=== PATIENT | female | born 1995 | race Caucasian/White ===

== ENCOUNTER 2018-01-30 02:10 | Emergency (ER) | payer OTHER ==
[2018-01-30] MEDS: IBUPROFEN 600 MG TAB PO (02:38)
== END 2018-01-30 06:25 | disposition home or self-care (01) ==
LOC: FTE 06:25
DX: S93.401A Sprain of unspecified ligament of right ankle, initial encounter (principal); X58.XXXA Exposure to other specified factors, initial encounter; Y92.9 Unspecified place or not applicable
CPT/HCPCS: 73610; 73610-RT; 81025; 99283-25